=== PATIENT | female | born 1950 | race Caucasian/White ===

== ENCOUNTER → 2016-08-19 | Outpatient (CLI) | payer MEDICARE | END | disposition home or self-care (01) | LOC: CFH 09:40 → EDSTATUS 10:15 | PROVIDERS: ATTEND Nurse Practitioner | DX: Z12.2 Encounter for screening for malignant neoplasm of respiratory organs (principal); F17.210 Nicotine dependence, cigarettes, uncomplicated | CPT/HCPCS: G0297 ==

== ENCOUNTER → 2017-11-22 | Outpatient (CLI) | payer MEDICARE | END | disposition home or self-care (01) | LOC: CFH 10:13 | PROVIDERS: ATTEND Nurse Practitioner | DX: Z12.31 Encounter for screening mammogram for malignant neoplasm of breast (principal) | CPT/HCPCS: 77063; 77067 ==

== ENCOUNTER → 2017-12-20 | Outpatient (CLI) | payer MEDICARE | END | disposition home or self-care (01) | LOC: CFH 09:39 | PROVIDERS: ATTEND Nurse Practitioner | DX: N63.20 Unspecified lump in the left breast, unspecified quadrant (principal); N63.10 Unspecified lump in the right breast, unspecified quadrant | CPT/HCPCS: 76642; 77066 ==

== ENCOUNTER → 2018-02-24 | Outpatient (CLI) | payer MEDICARE ==
[~2018-02-24] MED LIST: BUDE10.2 PO; LANS30CA PO; LIDOCAINE 1%, 10ML ONE; LIDOCAINE 1%-EPI 1:100K, 20ML ONE; SODIUM BICARBONATE 4.0%, 5ML ONE; TIOT18CA INH
== END | disposition home or self-care (01) ==
LOC: CFH 08:49
PROVIDERS: ATTEND Surgery
DX: C50.912 Malignant neoplasm of unspecified site of left female breast (principal)
CPT/HCPCS: 19285; 77065; J3490

== ENCOUNTER 2018-02-28 06:01 | Day surgery (SDC) | payer MEDICARE ==
[~2018-02-28] VITALS: Ht 157.5 cm; Wt 96.0 kg
[~2018-02-28 06:01] MED LIST changes: -LIDOCAINE 1%, 10ML ONE; -LIDOCAINE 1%-EPI 1:100K, 20ML ONE; -SODIUM BICARBONATE 4.0%, 5ML ONE
[2018-02-28] MEDS ORDERED: BUPIVACAINE/PF-EPI 0.5% 1:200K ONE (06:17)
[2018-02-28] MEDS ORDERED: ALBUTEROL/IPRATROPIUM 2.5MG/0.5MG, 3 ML NEB STA (06:35)
[2018-02-28] MEDS ORDERED: LACTATED RINGERS 1,000 ML IV SCH (06:36)
[2018-02-28 06:45] VITALS: BP 170/96
[2018-02-28] MEDS ORDERED: APREPITANT 40 MG CAPSULE PO ONE (07:00)
[2018-02-28] MEDS ORDERED: PROPOFOL 10 MG/ML, 20ML ONE (07:21)
[2018-02-28] MEDS ORDERED: PHENYLEPHRINE 10 MG/ML ONE (07:21)
[2018-02-28] MEDS ORDERED: LIDOCAINE 2% 100MG/5ML SYRINGE ONE (07:32)
[2018-02-28] MEDS ORDERED: FENTANYL PF 100 MCG/2ML ONE (07:44)
[2018-02-28] MEDS ORDERED: SUGAMMADEX 200 MG/2 ML IVPush ONE (07:48)
[2018-02-28] MEDS ORDERED: ALBUTEROL/IPRATROPIUM 2.5MG/0.5MG, 3 ML ONE (08:11)
[2018-02-28] MEDS ORDERED: HYDROcodone/APAP 7.5-325MG/15ML UDC PO PRN (08:30)
[2018-02-28] MEDS ORDERED: OXYcodone 5 MG/5 ML ORAL.SOL UDC PO PRN (08:30)
[2018-02-28] MEDS ORDERED: ACETAMINOPHEN 325 MG TABLET PO PRN (08:30)
[2018-02-28] MEDS ORDERED: MORPHINE SULFATE 4 MG/ML, 1ML IVPush PRN (08:30)
[2018-02-28] MEDS ORDERED: HYDROmorphone 1 MG/ML, 1ML IV PRN (08:30)
[2018-02-28] MEDS ORDERED: MEPERIDINE/PF 25MG/0.5ML IVPush PRN (08:30)
[2018-02-28] MEDS ORDERED: FENTANYL PF 100 MCG/2ML IV PRN (08:30)
[2018-02-28] MEDS ORDERED: KETOROLAC 30 MG/1 ML IV PRN (08:30)
[2018-02-28] MEDS ORDERED: KETOROLAC 30 MG/1 ML IM PRN (08:30)
[2018-02-28] MEDS ORDERED: CEFAZOLIN 1,000 MG ONE (10:52)
[2018-02-28] MEDS ORDERED: KETOROLAC 30 MG/1 ML ONE (10:52)
== END 2018-02-28 09:33 | disposition home or self-care (01) ==
LOC: OUT 06:01
PROVIDERS: ATTEND Surgery
DX: D05.12 Intraductal carcinoma in situ of left breast (principal); J44.9 Chronic obstructive pulmonary disease, unspecified; F17.210 Nicotine dependence, cigarettes, uncomplicated; K21.9 Gastro-esophageal reflux disease without esophagitis; Z90.710 Acquired absence of both cervix and uterus; Z90.49 Acquired absence of other specified parts of digestive tract
CPT/HCPCS: 19301; 76098; 88307; 93005; 94640; C1729; J0690; J1885; J2370; J2704; J3010; J7120; J8501

== ENCOUNTER → 2018-05-06 | Outpatient (CLI) | payer MEDICARE | END | disposition home or self-care (01) | LOC: CFH 12:12 | PROVIDERS: ATTEND Internal Medicine Hematology & Oncology | DX: Z13.820 Encounter for screening for osteoporosis (principal); Z12.2 Encounter for screening for malignant neoplasm of respiratory organs; M85.88 Other specified disorders of bone density and structure, other site; I25.10 Atherosclerotic heart disease of native coronary artery without angina pectoris; F17.210 Nicotine dependence, cigarettes, uncomplicated; D05.12 Intraductal carcinoma in situ of left breast; N95.9 Unspecified menopausal and perimenopausal disorder | CPT/HCPCS: 77080; G0297 ==

== ENCOUNTER → 2019-05-12 | Outpatient (CLI) | payer MEDICARE, MEDICAID | END | disposition home or self-care (01) | LOC: CFH 14:21 | PROVIDERS: ATTEND Internal Medicine | DX: Z12.2 Encounter for screening for malignant neoplasm of respiratory organs (principal); I25.10 Atherosclerotic heart disease of native coronary artery without angina pectoris; F17.210 Nicotine dependence, cigarettes, uncomplicated; Z88.5 Allergy status to narcotic agent | CPT/HCPCS: G0297 ==

== ENCOUNTER 2020-07-09 08:08 | Outpatient (CLI) | payer MEDICARE ==
[~2020-07-09 08:08] MED LIST changes: +REGADENOSON 0.4 MG/5 ML SYRINGE ONE
== END 2020-07-10 23:59 | disposition home or self-care (01) ==
LOC: CFH 08:08
PROVIDERS: ATTEND Physician Assistant Medical
DX: I21.29 ST elevation (STEMI) myocardial infarction involving other sites (principal); I25.9 Chronic ischemic heart disease, unspecified; I25.10 Atherosclerotic heart disease of native coronary artery without angina pectoris; I42.9 Cardiomyopathy, unspecified
CPT/HCPCS: 78452; 93017; A9502; J2785